=== PATIENT | female | born 1960 | race Caucasian/White ===

== ENCOUNTER 2021-11-23 08:00 | Inpatient (IN) | payer OTHER ==
[~2021-11-23] VITALS: Ht 167.6 cm; Wt 120.3 kg
[2021-11-23 08:53] LABS: Hematocrit 40.4 % (36.0-46.0); Hemoglobin 12.9 g/dL (12.2-16.2); Mean Corpuscular Hemoglobin 29.6 pg (28.0-32.0); Mean Corpuscular Hgb Conc. 31.9 g/dL (32.0-36.0); Mean Corpuscular Volume 92.8 fL (80.0-100.0); Red Blood Cells 4.36 10^6/uL (4.0-5.20); Red Cell Distribution Width 14.6 % (11.8-14.3); White Blood Cell 10.8 10^3/uL (4.4-10.8)
[2021-11-23 08:57] LABS: Basophils % (manual) 0 (0.0-2.0); Blast Cells 0; Metamyelocytes % 0; Promyelocytes % 0; Reactive Lymphocytes 0
[2021-11-23 09:01] LABS: Albumin 2.9 g/dL (3.4-5.0); Calcium 8.7 mg/dL (8.5-10.1); Magnesium 2.5 mg/dL (1.6-2.6)
[2021-11-23] MEDS ORDERED: NOREPINEPHRINE 8 MG/250ML KIT 250 ML IV ONE (09:02)
[2021-11-23 09:06] LABS: BUN/Creatinine Ratio 18.9; Bilirubin, Total 0.4 mg/dL (0.2-1.0); Total Protein 7.3 g/dL (6.4-8.2)
[2021-11-23 09:17] LABS: INR 1.21 (0.9-1.15); Partial Thromboplastin Time 33.6 sec (23.6-33.0)
[2021-11-23] MEDS ORDERED: MIDAZOLAM DRIP 50 mg/50mL 50 ML IV ONE (09:27)
[2021-11-23 09:52] LABS: Potassium 2.7 mmol/L (3.5-5.1)
[2021-11-23] MEDS: MIDAZOLAM DRIP 50 mg/50mL 50 ML IV SCH (10:01)
[2021-11-23 10:15] VITALS: BP 95/40
[2021-11-23] MEDS ORDERED: SOD CHL 0.9%/ KCL 40MEQ 250 ML IV ONE (10:15)
[2021-11-23] MEDS: MAGNESIUM SULFATE 1GM/100ML 100 ML IV SCH ×4 (11:00→17:45)
[2021-11-23] MEDS ORDERED: SOD CHL 0.9%/ KCL 40MEQ 1,000 ML IV ONE (11:00)
[2021-11-23] MEDS ORDERED: POTASSIUM CHL 10MEQ/50ML 100 ML IV ONE (12:00)
[2021-11-23] MEDS: POTASSIUM CHL 10MEQ/50ML 50 ML IV SCH ×6 (12:15→17:06)
[2021-11-23] MEDS ORDERED: NOREPINEPHRINE 8 MG/250ML KIT 250 ML IV SCH (12:15)
[2021-11-23 13:01] LABS: Band Neutrophils % (manual) 7; Eosinophils % (manual) 1 (0-7); Lymphocytes % (manual) 62 (10.0-50.0); Monocytes % (manual) 2 (0-12); Myelocytes % 1
[2021-11-23] MEDS ORDERED: MEROPENEM 1GM IVPB 100 ML IV ONE (13:15)
[2021-11-23] MEDS ORDERED: VANCOMYCIN PER PHARMACY 1,000 MG IV SCH (13:15)
[2021-11-23] MEDS ORDERED: LORazepam 2MG/ML-1ML VIAL IV PRN (13:15)
[2021-11-23] MEDS ORDERED: ACETAMINOPHEN 325 MG TAB PO PRN (13:15)
[2021-11-23] MEDS ORDERED: MORPHINE SULFATE INJECTION 2 MG/ML SYRG IV PRN ×3 (13:15→16:45)
[2021-11-23] MEDS ORDERED: NITROGLYCERIN 0.4 MG SL TAB SL PRN ×2 (13:15→16:45)
[2021-11-23] MEDS ORDERED: DEXTROSE (50%) 50ML SYRG IV PRN (13:15)
[2021-11-23] MEDS ORDERED: MORPHINE SULFATE 4 MG/ML SYR/VIAL IV PRN (13:15)
[2021-11-23] MEDS: NOREPINEPHRINE 8 MG/250ML KIT 250 ML IV SCH (13:15)
[2021-11-23 13:39] LABS: Lactic Acid w/Reflex 9.1 mmol/L (0.4-2.0)
[2021-11-23] MEDS ORDERED: ENOXAPARIN SOD 120 MG/0.8 ML SYRINGE SC ONE (13:45)
[2021-11-23 13:59] LABS: Urine Bacteria FEW /hpf (None Seen); Urine Blood 2+ /uL (Negative); Urine Mucus FEW (None Seen); Urine Specific Gravity 1.019 (1.001-1.035); Urine WBC 14 /hpf (0 - 5)
[2021-11-23 14:12] LABS: Alcohol, Urine < 3.0 mg/dL (0-10); Amphetamine Screen, Urine NEGATIVE (NEGATIVE); Barbiturate Scree,Urine NEGATIVE (NEGATIVE); Benzodiazephine Screen, Urine POSITIVE (NEGATIVE); Cannabinoid Screen, Urine NEGATIVE (NEGATIVE); Cocaine Screen, Urine NEGATIVE (NEGATIVE)
[2021-11-23 14:20] LABS: Opiate Scree,Urine NEGATIVE (NEGATIVE); Phencyclidine Screen, Urine NEGATIVE (NEGATIVE)
[2021-11-23 14:42] VITALS: BP 100/49
[2021-11-23] MEDS ORDERED: PANTOPRAZOLE 40 MG/10 ML VIAL INJ IV ONE (16:45)
[2021-11-23] MEDS ORDERED: DOCUSATE SOD 100 MG CAP PO PRN (16:45)
[2021-11-23] MEDS ORDERED: BUDESONIDE (INHALATION) 0.5 MG/2 ML NEB NEB ONE (16:45)
[2021-11-23] MEDS ORDERED: IPRATROPIUM BROM 0.5 MG/2.5ML INH SOL NEB ONE (16:45)
[2021-11-23] MEDS ORDERED: HYDROcodone-ACET 5/325MG TAB PO PRN (16:45)
[2021-11-23] MEDS ORDERED: TEMAZEPAM 15 MG CAP PO PRN (16:45)
[2021-11-23] MEDS ORDERED: ALUM & MAG HYDROX-SIMETH LIQ(MAALOX) 30 ML PO PRN (16:45)
[2021-11-23] MEDS ORDERED: hydrALAZINE HCL 20 MG/ML VL IV PRN (16:45)
[2021-11-23] MEDS ORDERED: ALBUTEROL SULF 2.5 MG/0.5ML(0.5%) NEB SOLN NEB PRN (16:45)
[2021-11-23] MEDS ORDERED: ALBUTEROL SULF 2.5 MG/0.5ML(0.5%) NEB SOLN NEB ONE (16:45)
[2021-11-23] MEDS ORDERED: METOCLOPRAMIDE HCL 5MG/ml INJ 2ml VIAL IV PRN (16:45)
[2021-11-23] MEDS ORDERED: METOPROLOL SUCCINATE XL 50 MG TAB PO ONE (16:45)
[2021-11-23] MEDS ORDERED: MAGNESIUM SULFATE 1GM/100ML 100 ML IV ONE (17:00)
[2021-11-23] MEDS: ACCU-CHEK COMFORT CURVE STRIP VI SCH ×2 (17:15→21:00)
[2021-11-23] MEDS: InsuLIN REG 1unit/0.01ml Soln (100units/ml) SC SCH ×2 (17:16→21:00)
[2021-11-23] MEDS: SODIUM CHLORIDE 0.9% 1,000 ML IV SCH (17:28)
[2021-11-23] MEDS ORDERED: VANCOMYCIN 1GM/250ML 250 ML IV ONE (18:00)
[2021-11-23] MEDS: IPRATROPIUM BROM 0.5 MG/2.5ML INH SOL NEB SCH ×2 (18:00→22:00)
[2021-11-23] MEDS: ALBUTEROL SULF 2.5 MG/0.5ML(0.5%) NEB SOLN NEB SCH ×2 (18:00→22:00)
[2021-11-23 18:45] VITALS: BP 107/48
[2021-11-23] MEDS: BUDESONIDE (INHALATION) 0.5 MG/2 ML NEB NEB SCH (19:28)
[2021-11-23 22:45] VITALS: BP 86/45
[2021-11-23 22:53] LABS: Cholesterol 169 mg/dL (< 200); HDL Cholesterol 39 mg/dL (40-59); LDL Cholesterol 108 mg/dL (< 100); Triglycerides 139 mg/dL (< 150)
[2021-11-23] MEDS: methylPREDNISolone SOD SUCC 40 MG/ML VL IV SCH (23:00)
[2021-11-23] MEDS: ENOXAPARIN SOD 120 MG/0.8 ML SYRINGE SC SCH (23:25)
[2021-11-23] MEDS: MEROPENEM 1GM IVPB 100 ML IV SCH (23:27)
[2021-11-23] MEDS: ACETAMINOPHEN 325 MG TAB PO PRN (23:39)
[2021-11-24] MEDS: ACETAMINOPHEN 325 MG TAB PO PRN (00:56)
[2021-11-24] MEDS: IPRATROPIUM BROM 0.5 MG/2.5ML INH SOL NEB SCH ×7 (02:00→22:07)
[2021-11-24] MEDS: ALBUTEROL SULF 2.5 MG/0.5ML(0.5%) NEB SOLN NEB SCH ×7 (02:00→22:07)
[2021-11-24 02:50] VITALS: BP 106/66
[2021-11-24] MEDS: ACCU-CHEK COMFORT CURVE STRIP VI SCH ×6 (03:38→20:16)
[2021-11-24] MEDS: InsuLIN REG 1unit/0.01ml Soln (100units/ml) SC SCH ×6 (03:57→20:00)
[2021-11-24] MEDS: BUDESONIDE (INHALATION) 0.5 MG/2 ML NEB NEB SCH ×2 (06:05→22:07)
[2021-11-24 06:20] VITALS: BP 109/57
[2021-11-24 06:38] LABS: Basophils # (auto) 0 10 ^3/uL (0-0.2); Basophils % (auto) 0.1 % (0.0-2.0); Eosinophils # (auto) 0 10 ^3/uL (0-0.8); Hematocrit 36.9 % (36.0-46.0); Hemoglobin 12.2 g/dL (12.2-16.2); Lymphocytes # (auto) 1.1 10 ^3/uL (0.4-5.4); Lymphocytes % (auto) 7.3 % (10.0-50.0); Mean Corpuscular Hemoglobin 29.1 pg (28.0-32.0); Mean Corpuscular Hgb Conc. 33.1 g/dL (32.0-36.0); Mean Corpuscular Volume 87.9 fL (80.0-100.0); Monocytes # (auto) 0.9 10 ^3/uL (0-1.3); Monocytes % (auto) 5.7 % (0.0-12.0); Neutrophils # (auto) 13.5 10 ^3/uL (1.6-8.6); Neutrophils % (auto) 86.9 % (37.0-80.0); Nucleated Red Blood Cells % 0.1 %; Red Blood Cells 4.19 10^6/uL (4.0-5.20); Red Cell Distribution Width 14.2 % (11.8-14.3); White Blood Cell 15.5 10^3/uL (4.4-10.8)
[2021-11-24] MEDS: methylPREDNISolone SOD SUCC 40 MG/ML VL IV SCH ×2 (07:01→14:23)
[2021-11-24 07:05] LABS: Albumin 2.8 g/dL (3.4-5.0); Calcium 8.1 mg/dL (8.5-10.1); Magnesium 2.6 mg/dL (1.6-2.6); Potassium 3.8 mmol/L (3.5-5.1)
[2021-11-24 07:06] LABS: % Iron Saturation 15.6 % (15-50)
[2021-11-24 07:08] LABS: INR 1.27 (0.9-1.15)
[2021-11-24 07:24] LABS: BUN/Creatinine Ratio 19.5; Bilirubin, Total 0.5 mg/dL (0.2-1.0); Phosphorus 4.1 mg/dL (2.5-4.90); Total Protein 7.1 g/dL (6.4-8.2); Uric Acid 8.6 mg/dL (2.6-6.0)
[2021-11-24] MEDS: SODIUM CHLORIDE 0.9% 1,000 ML IV SCH (09:25)
[2021-11-24 09:28] VITALS: BP 109/63
[2021-11-24] MEDS: ENOXAPARIN SOD 120 MG/0.8 ML SYRINGE SC SCH ×2 (09:41→21:59)
[2021-11-24] MEDS: PANTOPRAZOLE 40 MG/10 ML VIAL INJ IV SCH (09:41)
[2021-11-24] MEDS: MEROPENEM 1GM IVPB 100 ML IV SCH ×2 (09:41→22:48)
[2021-11-24] MEDS: MIDAZOLAM DRIP 50 mg/50mL 50 ML IV SCH ×2 (09:45→22:00)
[2021-11-24] MEDS ORDERED: LOSARTAN POTASSIUM 25 MG TAB PO SCH (10:00)
[2021-11-24] MEDS ORDERED: METOPROLOL SUCCINATE XL 50 MG TAB PO SCH (10:00)
[2021-11-24] MEDS ORDERED: fentaNYL Drip 2500mCg/250mlNS 250 ML IV ONE (10:27)
[2021-11-24] MEDS ORDERED: ASPirin 81 mg TAB PO ONE (11:15)
[2021-11-24] MEDS: fentaNYL Drip 2500mCg/250mlNS 250 ML IV SCH ×3 (11:30→13:30)
[2021-11-24] MEDS ORDERED: VANCOMYCIN 1GM/250ML 250 ML IV ONE (12:00)
[2021-11-24 12:42] LABS: Hepatitis A Ab IgM Negative
[2021-11-24 12:43] LABS: Hepatitis B Core IgM Negative; Hepatitis C Antibody Negative (Negative)
[2021-11-24] MEDS: NOREPINEPHRINE 8 MG/250ML KIT 250 ML IV SCH (13:15)
[2021-11-24 13:26] VITALS: BP 99/56
[2021-11-24] MEDS ORDERED: LORazepam 2MG/ML-1ML VIAL IV PRN (15:30)
[2021-11-24] MEDS: IVERMECTIN 3 MG TAB PO SCH (15:30)
[2021-11-24] MEDS ORDERED: DexAMETHasone SOD PHOS 10MG/1ML VIAL INJ IV ONE (18:00)
[2021-11-24] MEDS: LINEZOLID 600MG/300ML 300 ML IV SCH (18:03)
[2021-11-24 18:17] VITALS: BP 95/52
[2021-11-24 22:07] VITALS: BP 83/59
[2021-11-25] VITALS (11 sets, daily range): BP systolic 89–114; BP diastolic 35–66
[2021-11-25] MEDS: ACCU-CHEK COMFORT CURVE STRIP VI SCH ×6 (00:06→20:13)
[2021-11-25] MEDS: MIDAZOLAM DRIP 50 mg/50mL 50 ML IV SCH ×6 (01:35→23:15)
[2021-11-25] MEDS: IPRATROPIUM BROM 0.5 MG/2.5ML INH SOL NEB SCH ×5 (02:03→22:17)
[2021-11-25] MEDS: ALBUTEROL SULF 2.5 MG/0.5ML(0.5%) NEB SOLN NEB SCH ×5 (02:03→22:16)
[2021-11-25] MEDS: SODIUM CHLORIDE 0.9% 1,000 ML IV SCH ×3 (02:05→14:02)
[2021-11-25] MEDS: InsuLIN REG 1unit/0.01ml Soln (100units/ml) SC SCH ×6 (04:00→20:14)
[2021-11-25 05:18] LABS: Basophils # (auto) 0 10 ^3/uL (0-0.2); Basophils % (auto) 0.2 % (0.0-2.0); Eosinophils # (auto) 0 10 ^3/uL (0-0.8); Hematocrit 27.4 % (36.0-46.0); Hemoglobin 9.3 g/dL (12.2-16.2); Lymphocytes # (auto) 1.3 10 ^3/uL (0.4-5.4); Mean Corpuscular Hemoglobin 29.5 pg (28.0-32.0); Mean Corpuscular Hgb Conc. 33.8 g/dL (32.0-36.0); Mean Corpuscular Volume 87.4 fL (80.0-100.0); Monocytes # (auto) 0.7 10 ^3/uL (0-1.3); Monocytes % (auto) 5.1 % (0.0-12.0); Neutrophils # (auto) 12.5 10 ^3/uL (1.6-8.6); Neutrophils % (auto) 85.7 % (37.0-80.0); Nucleated Red Blood Cells % 0.1 %; Red Blood Cells 3.14 10^6/uL (4.0-5.20); Red Cell Distribution Width 14.2 % (11.8-14.3); White Blood Cell 14.6 10^3/uL (4.4-10.8)
[2021-11-25 05:44] LABS: Potassium 3.3 mmol/L (3.5-5.1)
[2021-11-25 05:46] LABS: BUN/Creatinine Ratio 14.3; Calcium 7.7 mg/dL (8.5-10.1)
[2021-11-25] MEDS: LINEZOLID 600MG/300ML 300 ML IV SCH ×2 (06:07→18:43)
[2021-11-25] MEDS: PANTOPRAZOLE 40 MG/10 ML VIAL INJ IV SCH (09:10)
[2021-11-25] MEDS: ENOXAPARIN SOD 120 MG/0.8 ML SYRINGE SC SCH (09:11)
[2021-11-25] MEDS: ASPirin 81 mg TAB PO SCH (09:11)
[2021-11-25] MEDS: IVERMECTIN 3 MG TAB PO SCH (09:19)
[2021-11-25] MEDS: DexAMETHasone SOD PHOS 10MG/1ML VIAL INJ IV SCH (09:19)
[2021-11-25] MEDS: BUDESONIDE (INHALATION) 0.5 MG/2 ML NEB NEB SCH ×2 (10:05→22:17)
[2021-11-25] MEDS: MEROPENEM 1GM IVPB 100 ML IV SCH (10:46)
[2021-11-25] MEDS ORDERED: HEPARIN DRIP/D5W 100UNITS/ML 250 ML IV SCH (12:00)
[2021-11-25 13:11] LABS: Protein, Urine 76.3 mg/dL (0.0-11.9)
[2021-11-25] MEDS: NOREPINEPHRINE 8 MG/250ML KIT 250 ML IV SCH (13:33)
[2021-11-25 21:47] LABS: INR 1.34 (0.9-1.15); Partial Thromboplastin Time 68.6 sec (23.6-33.0)
[2021-11-25] MEDS: MEROPENEM 500MG IVPB 50 ML IV SCH (22:46)
[2021-11-26] VITALS (68 sets, daily range): BP systolic 61–142; BP diastolic 26–96
[2021-11-26] MEDS: ACCU-CHEK COMFORT CURVE STRIP VI SCH ×6 (00:32→20:00)
[2021-11-26] MEDS: InsuLIN REG 1unit/0.01ml Soln (100units/ml) SC SCH ×6 (00:33→21:26)
[2021-11-26] MEDS: ALBUTEROL SULF 2.5 MG/0.5ML(0.5%) NEB SOLN NEB SCH ×6 (01:59→22:11)
[2021-11-26] MEDS: IPRATROPIUM BROM 0.5 MG/2.5ML INH SOL NEB SCH ×6 (01:59→22:11)
[2021-11-26] MEDS: MIDAZOLAM DRIP 50 mg/50mL 50 ML IV SCH ×3 (02:15→22:15)
[2021-11-26 02:24] LABS: INR 1.27 (0.9-1.15); Partial Thromboplastin Time 64.3 sec (23.6-33.0)
[2021-11-26 02:25] LABS: BUN/Creatinine Ratio 12.5; Calcium 7.3 mg/dL (8.5-10.1); Potassium 3.7 mmol/L (3.5-5.1)
[2021-11-26 03:00] LABS: Eosinophils # (auto) 0 10 ^3/uL (0-0.8); Hemoglobin 7.7 g/dL (12.2-16.2)
[2021-11-26 03:02] LABS: Basophils # (auto) 0.1 10 ^3/uL (0-0.2); Basophils % (auto) 0.3 % (0.0-2.0); Hematocrit 23.7 % (36.0-46.0); Lymphocytes # (auto) 1.6 10 ^3/uL (0.4-5.4); Lymphocytes % (auto) 7.5 % (10.0-50.0); Mean Corpuscular Hemoglobin 28.8 pg (28.0-32.0); Mean Corpuscular Hgb Conc. 32.5 g/dL (32.0-36.0); Mean Corpuscular Volume 88.4 fL (80.0-100.0); Monocytes # (auto) 1.2 10 ^3/uL (0-1.3); Monocytes % (auto) 5.6 % (0.0-12.0); Neutrophils % (auto) 86.6 % (37.0-80.0); Red Blood Cells 2.68 10^6/uL (4.0-5.20); Red Cell Distribution Width 14.1 % (11.8-14.3)
[2021-11-26] MEDS: SODIUM CHLORIDE 0.9% 1,000 ML IV SCH ×2 (04:15→16:45)
[2021-11-26 05:23] LABS: INR 1.3 (0.9-1.15); Partial Thromboplastin Time 67.9 sec (23.6-33.0)
[2021-11-26] MEDS: LINEZOLID 600MG/300ML 300 ML IV SCH ×2 (06:26→18:13)
[2021-11-26 08:55] LABS: INR 1.35 (0.9-1.15); Partial Thromboplastin Time 49.5 sec (23.6-33.0)
[2021-11-26] MEDS ORDERED: DOPamine 1600MCG/ML D5W 250 ML IV SCH (09:00)
[2021-11-26] MEDS: MEROPENEM 500MG IVPB 50 ML IV SCH ×2 (10:00→21:31)
[2021-11-26] MEDS: ASPirin 81 mg TAB PO SCH (10:00)
[2021-11-26] MEDS: BUDESONIDE (INHALATION) 0.5 MG/2 ML NEB NEB SCH ×2 (10:00→18:25)
[2021-11-26] MEDS: DexAMETHasone SOD PHOS 10MG/1ML VIAL INJ IV SCH (10:00)
[2021-11-26] MEDS: IVERMECTIN 3 MG TAB PO SCH (10:00)
[2021-11-26] MEDS: PANTOPRAZOLE 40 MG/10 ML VIAL INJ IV SCH (10:00)
[2021-11-26] MEDS ORDERED: PHENYLEPHRINE IV 250 ML IV ONE (10:52)
[2021-11-26] MEDS ORDERED: PROPOFOL 100 ML IV ONE (11:20)
[2021-11-26] MEDS ORDERED: PROPOFOL 100 ML IV SCH (11:30)
[2021-11-26] MEDS ORDERED: AMIODARONE HCL 150 MG in D5W 5% 100 ML IV ONE (12:30)
[2021-11-26] MEDS ORDERED: AMIODARONE 450mg/250ml AE 250 ML IV SCH ×2 (12:45→18:45)
[2021-11-26] MEDS: NOREPINEPHRINE 8 MG/250ML KIT 250 ML IV SCH ×3 (13:22→23:15)
[2021-11-26] MEDS ORDERED: dilTIAZem 25 MG/5 ML VIAL IV ONE (15:00)
[2021-11-26 15:04] LABS: INR 1.49 (0.9-1.15)
[2021-11-26 15:10] LABS: Partial Thromboplastin Time 99.7 sec (23.6-33.0)
[2021-11-26] MEDS ORDERED: SODIUM CHLORIDE 0.9% 1,000 ML IV ONE (16:15)
[2021-11-26] MEDS: PHENYLEPHRINE IV 250 ML IV SCH (16:15)
[2021-11-26] MEDS: fentaNYL Drip 2500mCg/250mlNS 250 ML IV SCH (19:00)
[2021-11-27] VITALS (32 sets, daily range): BP systolic 73–125; BP diastolic 32–61
[2021-11-27] MEDS: InsuLIN REG 1unit/0.01ml Soln (100units/ml) SC SCH ×4 (01:14→12:00)
[2021-11-27] MEDS: MIDAZOLAM DRIP 50 mg/50mL 50 ML IV SCH ×2 (01:15→04:15)
[2021-11-27] MEDS: ALBUTEROL SULF 2.5 MG/0.5ML(0.5%) NEB SOLN NEB SCH ×5 (02:22→18:20)
[2021-11-27] MEDS: IPRATROPIUM BROM 0.5 MG/2.5ML INH SOL NEB SCH ×5 (02:22→18:20)
[2021-11-27] MEDS: SODIUM CHLORIDE 0.9% 1,000 ML IV SCH ×2 (02:45→13:05)
[2021-11-27] MEDS ORDERED: VASOPRESSIN 50 UNITS in D5W 5% 247.5 ML IV SCH (03:15)
[2021-11-27] MEDS: NOREPINEPHRINE 8 MG/250ML KIT 250 ML IV SCH (03:15)
[2021-11-27] MEDS: ACCU-CHEK COMFORT CURVE STRIP VI SCH ×4 (04:00→12:00)
[2021-11-27] MEDS: LINEZOLID 600MG/300ML 300 ML IV SCH (06:00)
[2021-11-27 08:20] LABS: Albumin 1.7 g/dL (3.4-5.0); Calcium 6.5 mg/dL (8.5-10.1); Potassium 5.2 mmol/L (3.5-5.1)
[2021-11-27 08:38] LABS: BUN/Creatinine Ratio 9.6; Bilirubin, Total 0.7 mg/dL (0.2-1.0); Total Protein 4.4 g/dL (6.4-8.2)
[2021-11-27] MEDS ORDERED: POTASSIUM CHL 10MEQ/50ML 50 ML IV PRN (08:45)
[2021-11-27] MEDS ORDERED: BUMETANIDE INJECTION 12.5 MG in GIVE UN-DILUTED 0 ML IV SCH (08:45)
[2021-11-27 09:13] LABS: Hematocrit 13.7 % (36.0-46.0); Mean Corpuscular Volume 96.4 fL (80.0-100.0); Red Blood Cells 1.43 10^6/uL (4.0-5.20); Red Cell Distribution Width 14.9 % (11.8-14.3)
[2021-11-27 09:15] LABS: White Blood Cell 53.2 10^3/uL (4.4-10.8)
[2021-11-27 09:17] LABS: Basophils % (manual) 0 (0.0-2.0); Blast Cells 0; Eosinophils % (manual) 0 (0-7); Promyelocytes % 0; Reactive Lymphocytes 0
[2021-11-27 09:47] LABS: INR 2.93 (0.9-1.15)
[2021-11-27 09:49] LABS: Partial Thromboplastin Time > 139.0 sec (23.6-33.0)
[2021-11-27] MEDS: MEROPENEM 500MG IVPB 50 ML IV SCH (10:00)
[2021-11-27] MEDS: DexAMETHasone SOD PHOS 10MG/1ML VIAL INJ IV SCH (10:00)
[2021-11-27] MEDS: ASPirin 81 mg TAB PO SCH (10:00)
[2021-11-27] MEDS: IVERMECTIN 3 MG TAB PO SCH (10:00)
[2021-11-27] MEDS: PANTOPRAZOLE 40 MG/10 ML VIAL INJ IV SCH (10:00)
[2021-11-27] MEDS: PHENYLEPHRINE IV 250 ML IV SCH ×2 (10:07→12:06)
[2021-11-27] MEDS ORDERED: DOPamine 1600MCG/ML D5W 250 ML IV SCH (12:15)
[2021-11-27 13:26] LABS: Band Neutrophils % (manual) 8; Lymphocytes % (manual) 8 (10.0-50.0); Metamyelocytes % 3; Monocytes % (manual) 7 (0-12); Myelocytes % 4
[2021-11-27] MEDS: BUDESONIDE (INHALATION) 0.5 MG/2 ML NEB NEB SCH (18:20)
== END 2021-11-27 22:12 | DRG 870 ==
LOC: EDBD 08:00 → ER 08:00 → TELE 13:15 → ICU WEST 11-25 21:24
PROVIDERS: ADMIT Hospitalist; ATTEND Internal Medicine
PROC: 5A1955Z Respiratory Ventilation, Greater than 96 Consecutive Hours (ICD-10-PCS; principal; 2021-11-23)
PROC: 0BH17EZ Insertion of Endotracheal Airway into Trachea, Via Natural or Artificial Opening (ICD-10-PCS; 2021-11-23)
PROC: 05HF33Z Insertion of Infusion Device into Left Cephalic Vein, Percutaneous Approach (ICD-10-PCS; 2021-11-24)
PROC: B54NZZA Ultrasonography of Left Upper Extremity Veins, Guidance (ICD-10-PCS; 2021-11-24)
PROC: 02HV33Z Insertion of Infusion Device into Superior Vena Cava, Percutaneous Approach (ICD-10-PCS; 2021-11-26)
PROC: B548ZZA Ultrasonography of Superior Vena Cava, Guidance (ICD-10-PCS; 2021-11-26)
DX: A41.50 Gram-negative sepsis, unspecified (principal); J96.21 Acute and chronic respiratory failure with hypoxia; R65.21 Severe sepsis with septic shock; J12.82 Pneumonia due to coronavirus disease 2019; U07.1 COVID-19; N17.0 Acute kidney failure with tubular necrosis; J96.22 Acute and chronic respiratory failure with hypercapnia; I21.4 Non-ST elevation (NSTEMI) myocardial infarction; N18.4 Chronic kidney disease, stage 4 (severe); E44.0 Moderate protein-calorie malnutrition; N39.0 Urinary tract infection, site not specified; J45.901 Unspecified asthma with (acute) exacerbation; J44.0 Chronic obstructive pulmonary disease with (acute) lower respiratory infection; I47.1 Supraventricular tachycardia; Z99.11 Dependence on respirator [ventilator] status; Z68.41 Body mass index [BMI] 40.0-44.9, adult; E87.2 Acidosis; I46.9 Cardiac arrest, cause unspecified; E87.6 Hypokalemia; E11.21 Type 2 diabetes mellitus with diabetic nephropathy; J20.9 Acute bronchitis, unspecified; E11.22 Type 2 diabetes mellitus with diabetic chronic kidney disease; E11.65 Type 2 diabetes mellitus with hyperglycemia; E66.01 Morbid (severe) obesity due to excess calories; N89.8 Other specified noninflammatory disorders of vagina; I12.9 Hypertensive chronic kidney disease with stage 1 through stage 4 chronic kidney disease, or unspecified chronic kidney disease; E88.09 Other disorders of plasma-protein metabolism, not elsewhere classified; E78.5 Hyperlipidemia, unspecified; I49.01 Ventricular fibrillation; E55.9 Vitamin D deficiency, unspecified; Z88.0 Allergy status to penicillin
CPT/HCPCS: 36415; 36600; 70450; 71045; 76775; 80048; 80053; 80061; 80074; 80202; 80307; 81001; 82306; 82570; 82728; 82805; 82962; 83036; 83540; 83550; 83605; 83735; 83880; 84100; 84156; 84300; 84443; 84484; 84550; 85007; 85025; 85027; 85379; 85610; 85730; 86850; 86900; 86901; 86920; 87040; 87070; 87076; 87081; 87086; 87205; 87426; 93005; 93306; 93970; 94002; 94003; 94640; 96365; 96367; 96372; 96375; C9113; G0378; J1100; J1815; J2185; J2250; J2704; J7060